=== PATIENT | male | born 2000 | race Two or more races ===

== ENCOUNTER 2023-03-19 23:29 | Emergency (ER) | payer SELFPAY ==
[~2023-03-19] VITALS: Ht 180.3 cm; Wt 90.0 kg
[2023-03-20] MEDS ORDERED: ONDANSETRON HCL 4 MG/2 ML VIAL IV ONE (02:00)
[2023-03-20] MEDS ORDERED: MORPHINE SULFATE INJ 2 MG/ml SYRG IV ONE (02:00)
[2023-03-20] MEDS ORDERED: PROPRANOLOL HCL 1 MG/ML VIAL IV ONE (02:45)
[2023-03-20] MEDS ORDERED: KETAMINE 50mg/ML 10ml Vial (500mg/10ml) IV ONE (02:45)
[2023-03-20] MEDS ORDERED: PROPOFOL 100 ML IV ONE (03:52)
[2023-03-20] MEDS ORDERED: IBUP-1456 PO (05:31)
[2023-03-20] MEDS ORDERED: HYDROcodone-ACET 10/325MG TAB PO ONE (06:15)
[2023-03-20 06:25] VITALS: BP 121/65
== END 2023-03-20 06:30 | disposition home or self-care (01) ==
LOC: ER 23:29 → EDBD 23:29 → ER 03-20 06:30
DX: S53.125A Posterior dislocation of left ulnohumeral joint, initial encounter (principal); M25.422 Effusion, left elbow; V86.59XA Driver of other special all-terrain or other off-road motor vehicle injured in nontraffic accident, initial encounter; Y93.89 Activity, other specified; Y92.89 Other specified places as the place of occurrence of the external cause; Y99.8 Other external cause status
CPT/HCPCS: 24600; 73070; 73080; 96374; 96375; 99152; 99285; J1800; J2270; J2405; J2704